=== PATIENT | male | born 1940 | race Caucasian/White ===

== ENCOUNTER 2022-01-12 08:15 | Inpatient (IN) ==
[2022-01-12] MEDS ORDERED: CeFAZolin Syr 2,000MG/20 ML 2,000 MG/20 ML SYRINGE IVPB ONE (08:39)
[2022-01-12] MEDS ORDERED: Famotidine 20 MG/2 ML VIAL IVP ONE (09:00)
[2022-01-12] MEDS ORDERED: Acetaminophen IV 1,000 MG/100 ML BAG IVPB ONE (09:00)
[2022-01-12] MEDS ORDERED: *HR* HYDROcodone/Acet 5/325 mg TABLET PO PRN (09:10)
[2022-01-12] MEDS ORDERED: Acetaminophen 325 MG TABLET PO PRN (09:11)
[2022-01-12] MEDS ORDERED: polyethylene glycoL 3350 17 GM POWD.PACK PO PRN (09:11)
[2022-01-12] MEDS ORDERED: Ondansetron 4 MG/2 ML VIAL IVP PRN (09:11)
[2022-01-12] MEDS: Ringers Solution, Lactated 1,000 ML IVC SCH ×2 (09:31→16:13)
[2022-01-12] MEDS ORDERED: Lidocaine -MPF 2% 5 ML VIAL ONE (09:49)
[2022-01-12] MEDS ORDERED: *HR* Propofol 200 MG/20 ML VIAL IVP ONE (09:49)
[2022-01-12] MEDS ORDERED: *HR* FentaNYL (PF) 100 MCG/2 ML VIAL ONE (09:49)
[2022-01-12] MEDS ORDERED: Ondansetron 4 MG/2 ML VIAL ONE (09:49)
[2022-01-12] MEDS ORDERED: Lidocaine/EPI 1:100k 2% 20 ML VIAL ONE (10:07)
[2022-01-12] MEDS ORDERED: Ropivacaine/PF 0.5% 30 ML VIAL ONE (10:07)
[2022-01-12] MEDS ORDERED: Bupivacaine/EPI 1:200k 0.25% 50 ML VIAL ONE (10:32)
[2022-01-12] MEDS ORDERED: *HR* Rivaroxaban 10 MG TABLET PO SCH (17:00)
[2022-01-12] MEDS: CeFAZolin 2,000 MG/120 ML BAG IVPB SCH (18:33)
[2022-01-12] MEDS: *HR* Rivaroxaban 15 MG TABLET PO SCH (19:20)
[2022-01-12] MEDS ORDERED: *HR* LORazepam 2 MG/ML VIAL IVP ONE ×2 (20:01→20:15)
[2022-01-13] MEDS: CeFAZolin 2,000 MG/120 ML BAG IVPB SCH (00:35)
[2022-01-13] MEDS: *HR* HYDROcodone/Acet 10/325 mg TABLET PO PRN ×2 (09:33→16:45)
[2022-01-13] MEDS: Furosemide 20 MG TABLET PO SCH (09:33)
[2022-01-13] MEDS: lisinopriL 20 MG TABLET PO SCH (09:34)
[2022-01-13] MEDS ORDERED: Haloperidol Lactate 5 MG/ML VIAL IVP STA (14:45)
[2022-01-13] MEDS ORDERED: *HR* HYDROmorphone (PF) 1 MG/ML SYRINGE IVP ONE (15:42)
[2022-01-13] MEDS ORDERED: Haloperidol Lactate 5 MG/ML VIAL IVP PRN (15:42)
[2022-01-13] MEDS: *HR* Rivaroxaban 15 MG TABLET PO SCH (16:46)
[2022-01-13] MEDS ORDERED: QUEtiapine Fumarate 25 MG TABLET PO SCH (21:00)
[2022-01-14] MEDS: lisinopriL 20 MG TABLET PO SCH (12:17)
[2022-01-14] MEDS: Furosemide 20 MG TABLET PO SCH (12:17)
[2022-01-14] MEDS ORDERED: QUEtiapine Fumarate 25 MG TABLET PO PRN (17:05)
[2022-01-14] MEDS: *HR* Rivaroxaban 15 MG TABLET PO SCH (17:22)
[2022-01-15 00:46] VITALS: BP 118/68; PULSE 78; TEMP 98.4; O2SAT 95
[2022-01-15] MEDS: Furosemide 20 MG TABLET PO SCH (09:56)
[2022-01-15] MEDS: lisinopriL 20 MG TABLET PO SCH (09:56)
[2022-01-15 12:56] LABS: Adenovirus Not Detected (Not Detect); Bordetella Pertussis Not Detected (Not Detect); Chlamydophila pneumoniae Not Detected (Not Detect); Coronavirus 229E Not Detected (Not Detect); Coronavirus HKU1 Not Detected (Not Detect); Coronavirus NL63 Not Detected (Not Detect); Coronavirus OC43 Not Detected (Not Detect); Human Metapneumovirus Not Detected (Not Detect); Human Rhinovirus/Enterovirus Not Detected (Not Detect); Influenza A Subtype 2009 H1 Not Detected (Not Detect); Influenza B Not Detected (Not Detect); Mycoplasma pneumoniae Not Detected (Not Detect); Parainfluenza Virus 1 Not Detected (Not Detect); Parainfluenza Virus 2 Not Detected (Not Detect); Parainfluenza Virus 3 Not Detected (Not Detect); Parainfluenza Virus 4 Not Detected (Not Detect); Respiratory Syncytial Virus Not Detected (Not Detect); SARS-CoV-2 Not Detected (Not Detect)
[2022-01-15] MEDS: *HR* HYDROcodone/Acet 10/325 mg TABLET PO PRN (16:40)
[2022-01-15] MEDS: *HR* Rivaroxaban 15 MG TABLET PO SCH (16:40)
== END 2022-01-15 17:25 | DRG 493 ==
LOC: SUATTDRO → SDCAOSI 08:15 → 4WAOSI 13:30
PROVIDERS: ADMIT Student in an Organized Health Care Education/Training Program; ATTEND Student in an Organized Health Care Education/Training Program

== ENCOUNTER 2022-02-16 12:12 | Inpatient (IN) ==
[2022-02-16 15:59] LABS: Basophils % 0.4 %; Eosinophils % 0.8 %; Hematocrit 34.1 % (37.5-50.1); Hemoglobin 11.1 g/dL (12.9-16.9); Immature Granulocytes % 0.2 % (0-4); Lymphocytes # 1.1 K/mcL (0.6-4.6); Lymphocytes % 22.1 %; Mean Corpuscular HGB Conc 32.6 g/dL (31.6-35.5); Mean Corpuscular Hemoglobin 30.8 pg (28.0-33.3); Mean Corpuscular Volume 94.7 fL (83.0-100.0); Mean Platelet Volume 11.6 fL (9.4-12.4); Monocytes # 0.5 K/mcL (0.0-1.3); Monocytes % 9.1 %; Neutrophils # 3.3 K/mcL (1.6-8.9); Platelet Count 154 K/mcL (140-400); Red Cell Distribution Width 14.4 % (11.5-14.5); Segmented Neutrophils % 67.4 %; White Blood Count 4.9 K/mcL (4.3-11.1)
[2022-02-16 16:06] LABS: INR 1.3
[2022-02-16 16:19] LABS: Calcium 9.6 mg/dL (8.6-10.3); Potassium 4.1 mEq/L (3.5-5.1)
[2022-02-16] MEDS ORDERED: Naloxone 0.4 MG/ML INJ IVP PRN (17:32)
[2022-02-16] MEDS ORDERED: Mag Hydrox/Al Hydrox/Simeth 30 ML UDC PO PRN (17:32)
[2022-02-16] MEDS ORDERED: MOM Conc 10 ML UD.LIQ PO PRN (17:32)
[2022-02-16] MEDS ORDERED: Ondansetron ODT 4 MG TAB.RAPDIS SL PRN (17:32)
[2022-02-16] MEDS ORDERED: *HR* HYDROcodone/Acet 5/325 mg TABLET PO PRN (17:37)
[2022-02-16] MEDS: risperiDONE 1 MG TABLET PO SCH (20:37)
[2022-02-17] MEDS: Glucagon, Human Recombinant 12 MG in 0.9 % Sodium Chloride 238 ML IVC SCH ×6 (01:04→20:03)
[2022-02-17] MEDS: Calcium Gluconate 1gm/50mL 1 GM/50 ML BAG IVPB SCH ×2 (03:22→04:24)
[2022-02-17 06:45] LABS: Basophils % 0.3 %; Eosinophils # 0.1 K/mcL (0.0-0.6); Eosinophils % 0.8 %; Hematocrit 30.8 % (37.5-50.1); Hemoglobin 9.9 g/dL (12.9-16.9); Immature Granulocytes % 0.2 % (0-4); Lymphocytes # 1.1 K/mcL (0.6-4.6); Lymphocytes % 16.6 %; Mean Corpuscular HGB Conc 32.1 g/dL (31.6-35.5); Mean Corpuscular Volume 96.6 fL (83.0-100.0); Mean Platelet Volume 12.1 fL (9.4-12.4); Monocytes # 0.4 K/mcL (0.0-1.3); Monocytes % 6.9 %; Neutrophils # 4.8 K/mcL (1.6-8.9); Platelet Count 136 K/mcL (140-400); Red Blood Count 3.19 M/mcL (4.19-5.50); Red Cell Distribution Width 14.2 % (11.5-14.5); Segmented Neutrophils % 75.2 %; White Blood Count 6.4 K/mcL (4.3-11.1)
[2022-02-17 07:05] LABS: Calcium 9.2 mg/dL (8.6-10.3); Potassium 3.8 mEq/L (3.5-5.1)
[2022-02-17] MEDS ORDERED: *HR* Atropine Sulfate 1 MG/10 ML SYRINGE IVP PRN (08:03)
[2022-02-17] MEDS ORDERED: Calcium Gluconate 1gm/50mL 1 GM/50 ML BAG IVPB ONE (08:11)
[2022-02-17 08:57] LABS: Magnesium 2.2 mg/dL (1.6-2.6); Phosphorous 3.6 mg/dL (2.7-4.5)
[2022-02-17] MEDS: Furosemide 40 MG TABLET PO SCH ×2 (10:05→13:13)
[2022-02-17] MEDS: lisinopriL 20 MG TABLET PO SCH ×2 (10:06→13:13)
[2022-02-17] MEDS: risperiDONE 1 MG TABLET PO SCH ×3 (10:06→20:02)
[2022-02-18] MEDS: Glucagon, Human Recombinant 12 MG in 0.9 % Sodium Chloride 238 ML IVC SCH ×3 (07:44→22:15)
[2022-02-18] MEDS: risperiDONE 1 MG TABLET PO SCH ×2 (10:05→21:01)
[2022-02-18] MEDS: Furosemide 40 MG TABLET PO SCH (10:05)
[2022-02-18] MEDS: lisinopriL 20 MG TABLET PO SCH (10:05)
[2022-02-18] MEDS ORDERED: Famotidine 20 MG/2 ML VIAL IVP ONE ×2 (11:36→16:22)
[2022-02-18] MEDS ORDERED: Bupivacaine/EPI 1:200k 0.25% 50 ML VIAL ONE (11:39)
[2022-02-18] MEDS ORDERED: ROPIVACAINE/PF/NS 0.25% 1 EACH SYRINGE INTRAART ONE (11:58)
[2022-02-18] MEDS ORDERED: Ropivacaine/PF 0.5% 30 ML VIAL ONE (11:58)
[2022-02-18] MEDS ORDERED: Lidocaine -MPF 2% 2 ML VIAL ONE ×2 (12:06→12:09)
[2022-02-18] MEDS ORDERED: *HR* Midazolam HCl 2 MG/2 ML VIAL ONE (12:06)
[2022-02-18] MEDS ORDERED: *HR* FentaNYL (PF) 100 MCG/2 ML VIAL ONE (12:06)
[2022-02-18] MEDS ORDERED: Ringers Solution, Lactated 1,000 ML IVC SCH (12:30)
[2022-02-18] MEDS ORDERED: CeFAZolin Syr 2,000MG/20 ML 2,000 MG/20 ML SYRINGE IVPB ONE (12:30)
[2022-02-18] MEDS ORDERED: *HR* Metoprolol 5 MG/5 ML VIAL IVP ONE (13:34)
[2022-02-18] MEDS ORDERED: Glucagon, Human Recombinant 12 MG in 0.9 % Sodium Chloride 238 ML IVC SCH (16:22)
[2022-02-18] MEDS ORDERED: Mag Hydrox/Al Hydrox/Simeth 30 ML UDC PO PRN (16:22)
[2022-02-18] MEDS ORDERED: Naloxone 0.4 MG/ML INJ IVP PRN (16:22)
[2022-02-18] MEDS ORDERED: MOM Conc 10 ML UD.LIQ PO PRN (16:22)
[2022-02-18] MEDS ORDERED: Ondansetron ODT 4 MG TAB.RAPDIS SL PRN (16:22)
[2022-02-18] MEDS: *HR* HYDROcodone/Acet 5/325 mg TABLET PO PRN (17:44)
[2022-02-18] MEDS: Ringers Solution, Lactated 1,000 ML IVC SCH (20:59)
[2022-02-19] MEDS ORDERED: *HR* Metoprolol 5 MG/5 ML VIAL IVP ONE (01:08)
[2022-02-19] MEDS: QUEtiapine Fumarate 25 MG TABLET PO SCH ×3 (02:10→21:34)
[2022-02-19] MEDS: *HR* HYDROcodone/Acet 5/325 mg TABLET PO PRN (05:19)
[2022-02-19] MEDS ORDERED: Furosemide 40 MG TABLET PO SCH (09:00)
[2022-02-19 09:13] LABS: Magnesium 1.5 mg/dL (1.6-2.6); Phosphorous 2.8 mg/dL (2.7-4.5); Potassium 4.1 mEq/L (3.5-5.1)
[2022-02-19 09:16] LABS: Basophils % 0.1 %; Eosinophils % 0.1 %; Hematocrit 31.8 % (37.5-50.1); Hemoglobin 10.3 g/dL (12.9-16.9); Immature Granulocytes % 0.2 % (0-4); Lymphocytes # 0.8 K/mcL (0.6-4.6); Lymphocytes % 6.2 %; Mean Corpuscular HGB Conc 32.4 g/dL (31.6-35.5); Mean Corpuscular Hemoglobin 30.8 pg (28.0-33.3); Mean Corpuscular Volume 95.2 fL (83.0-100.0); Mean Platelet Volume 12.1 fL (9.4-12.4); Monocytes % 7.9 %; Neutrophils # 10.5 K/mcL (1.6-8.9); Platelet Count 129 K/mcL (140-400); Red Blood Count 3.34 M/mcL (4.19-5.50); Red Cell Distribution Width 14.1 % (11.5-14.5); Segmented Neutrophils % 85.5 %
[2022-02-19 09:18] LABS: White Blood Count 12.3 K/mcL (4.3-11.1)
[2022-02-19] MEDS: lisinopriL 20 MG TABLET PO SCH (15:37)
[2022-02-19] MEDS: risperiDONE 1 MG TABLET PO SCH ×3 (15:37→21:34)
[2022-02-19] MEDS: *HR* Metoprolol 5 MG/5 ML VIAL IVP PRN (16:28)
[2022-02-19] MEDS: *HR* Rivaroxaban 15 MG TABLET PO SCH (18:25)
[2022-02-19] MEDS: hydrALAZINE 25 MG TABLET PO SCH (18:26)
[2022-02-19] MEDS: Furosemide 20 MG/2 ML VIAL IVP SCH ×2 (21:03→21:46)
[2022-02-19] MEDS: Ringers Solution, Lactated 1,000 ML IVC SCH (21:04)
[2022-02-19] MEDS ORDERED: *HR* LORazepam 2 MG/ML VIAL IVP ONE (21:20)
[2022-02-20] MEDS: hydrALAZINE 25 MG TABLET PO SCH ×4 (00:08→17:57)
[2022-02-20] MEDS: Furosemide 20 MG/2 ML VIAL IVP SCH ×2 (10:12→20:38)
[2022-02-20] MEDS: risperiDONE 1 MG TABLET PO SCH ×3 (10:43→20:37)
[2022-02-20] MEDS: lisinopriL 20 MG TABLET PO SCH (10:43)
[2022-02-20] MEDS: *HR* Rivaroxaban 15 MG TABLET PO SCH ×2 (16:50→17:57)
[2022-02-20] MEDS: Ringers Solution, Lactated 1,000 ML IVC SCH (16:50)
[2022-02-20] MEDS: *HR* Metoprolol 5 MG/5 ML VIAL IVP PRN (17:53)
[2022-02-20] MEDS: QUEtiapine Fumarate 25 MG TABLET PO SCH (20:37)
[2022-02-21] MEDS: hydrALAZINE 25 MG TABLET PO SCH ×6 (00:02→17:47)
[2022-02-21 00:17] VITALS: O2SAT 100
[2022-02-21] MEDS: *HR* Metoprolol 5 MG/5 ML VIAL IVP PRN (00:58)
[2022-02-21] MEDS: lisinopriL 20 MG TABLET PO SCH ×2 (08:28→08:44)
[2022-02-21] MEDS: risperiDONE 1 MG TABLET PO SCH ×2 (08:44→09:53)
[2022-02-21] MEDS: Furosemide 20 MG/2 ML VIAL IVP SCH ×3 (08:44→21:04)
[2022-02-21 16:09] VITALS: BP 135/64; PULSE 85; TEMP 97.9
[2022-02-21] MEDS ORDERED: *HR* Rivaroxaban 10 MG TABLET PO SCH (17:00)
[2022-02-21] MEDS: Ringers Solution, Lactated 1,000 ML IVC SCH (17:48)
[2022-02-21] MEDS: *HR* HYDROcodone/Acet 5/325 mg TABLET PO PRN (18:29)
[2022-02-21] MEDS ORDERED: Furosemide 20 MG/2 ML VIAL IVP ONE (23:58)
[2022-02-21] MEDS ORDERED: QUEtiapine Fumarate 25 MG TABLET PO ONE (23:58)
[2022-02-21] MEDS ORDERED: risperiDONE 1 MG TABLET PO ONE (23:58)
== END 2022-02-21 23:59 | disposition other institution (70) | DRG 469 ==
LOC: 4WAOSI 12:12 → EMEROOARM 12:12 → SUATTDRO 16:55 → 4WAOSI 17:36 → 2NNU 02-17 01:04 → 4WAOSI 02-18 15:02
PROVIDERS: ADMIT Internal Medicine; ATTEND Internal Medicine